=== PATIENT | male | born 1945 | race Caucasian/White ===

== ENCOUNTER 2021-04-15 09:54 | Emergency (ER) | payer MEDICARE ==
--- NOTE | 2021-04-15 11:36 | EDM.PDOC ---
ED HPI GENERAL MEDICAL PROBLEM - General Chief Complaint: Lower Extremity Injury/Pain Stated Complaint: PAIN IN L LEG Time Seen by Provider: 04/15/21 11:15 Source of Information: Reports: Patient, Family, Old Records History Limitations: Reports: No Limitations - History of Present Illness INITIAL COMMENTS - FREE TEXT/NARRATIVE: Patient comes in with left lower extremity pain. Predominantly to the back of the knee and calf area however does have pain in the front of the humphries. He states this causes him problems while he is trying to be up and walking or lying flat in bed. He was seen previously this week for lower back pain and hip pain which generally showed arthritis and no further complications. 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 Treatments, NSAIDS, Other Medication(s) (topical biofreeze and aspercreame) - Related Data Allergies Allergy/AdvReac Type Severity Reaction Status Date / Time No Known Allergies Allergy Verified 04/15/21 10:41 Home Meds: Home Meds Lisinopril/Hydrochlorothiazide [Lisinopril-Hctz 20-25 mg Tab] 1 tab PO DAILY 04/15/21 [History] atorvaSTATin [Lipitor] 20 mg PO BEDTIME 04/15/21 [History] methylPREDNISolone [Methylprednisolone] 4 mg PO ASDIRECTED 04/15/21 [History] Past Medical History Cardiovascular History: Reports: High Cholesterol, Hypertension - Past Surgical History HEENT Surgical History: Reports: Tonsillectomy Musculoskeletal Surgical History: Reports: Shoulder Surgery Other Musculoskeletal Surgeries/Procedures:: back surgery Social & Family History - Tobacco Use Tobacco Use Status *Q: Never Tobacco User Review of Systems - Review of Systems Review Of Systems: See Below Constitutional: Reports: No Symptoms Cardiovascular: Reports: No Symptoms Musculoskeletal: Reports: Leg Pain (left), Joint Pain, Muscle Pain (difficult for pt to determine muscle vs bone pain) Skin: Reports: Erythema (small red sulema just below humphries left leg) Neurological: Reports: No Symptoms Psychiatric: Reports: No Symptoms ED EXAM, GENERAL - Physical Exam Exam: See Below Exam Limited By: No Limitations General Appearance: Alert, WD/WN, No Apparent Distress Respiratory/Chest: No Respiratory Distress Cardiovascular: Normal Peripheral Pulses, Regular Rate, Rhythm, No Edema Peripheral Pulses: 2+: Popliteal (L) Extremities: Leg Pain, Redness (just below humphries left knee). No: Non-Tender, Shaw's Sign, Limited Range of Motion, Increased Warmth Neurological: Alert, Oriented, CN II-XII Intact, Normal Cognition Psychiatric: Normal Affect Skin Exam: Warm, Dry, Intact Course - Vital Signs Last Recorded V/S: Last Vital Signs Temp 36.5 C 04/15/21 10:45 Pulse 69 04/15/21 10:45 Resp 16 04/15/21 10:45 BP 124/73 04/15/21 10:45 Pulse Ox 95 04/15/21 10:45 - Orders/Labs/Meds Labs: Laboratory Tests 04/15/21 Range/Units 11:40 D-Dimer, Quantitative 338.08 (0.0-500.0) ng/mL Departure - Departure Time of Disposition: 13:28 Disposition: Home, Self-Care 01 Condition: Good Clinical Impression: Leg pain, anterior - Discharge Information Instructions: Knee Sprain, Adult, [id number] Referrals: Timur Mora COMMERCIAL MANAGER [Primary Care Provider] - Forms: ED Department Discharge Additional Instructions: Patient may use Tylenol or ibuprofen as appropriate for pain relief. If pain continues return to primary care for further follow-up. No DVT at this time Sepsis Event Note (ED) - Evaluation Sepsis Screening Result: No Definite Risk - Focused Exam Vital Signs: Vital Signs Temp Pulse Resp BP Pulse Ox 04/15/21 10:45 36.5 C 69 16 124/73 95 04/15/21 10:29 36.5 C 69 16 124/73 95 - Assessment/Plan Assessment:: Leg pain. Unknown reason. Patient was DVT negative as D-dimer is negative. As patient does not has any pain full range of motion without abnormality
== END 2021-04-15 13:28 | disposition home or self-care (01) ==
LOC: JP.ED 09:54
DX: M79.662 Pain in left lower leg (principal); E78.00 Pure hypercholesterolemia, unspecified; I10 Essential (primary) hypertension; Z79.899 Other long term (current) drug therapy
CPT/HCPCS: 36415; 85379; 99283